=== PATIENT | male | born 1980 | race Caucasian/White ===

== ENCOUNTER 2016-08-17 06:11 | Emergency (ER) | payer OTHER ==
[~2016-08-17] VITALS: Ht 170.2 cm; Wt 76.7 kg
[~2016-08-17 06:11] MED LIST: ERYTHROMYC1 APPLICAT LEFT EYE
[2016-08-17] MEDS ORDERED: ERYTHROMYC1 APPLICAT LEFT EYE (08:16)
[2016-08-17 09:15] VITALS: BP 118/87
== END 2016-08-17 09:16 | disposition home or self-care (01) ==
LOC: EME 06:11
DX: H57.8 Other specified disorders of eye and adnexa (principal); F17.200 Nicotine dependence, unspecified, uncomplicated
CPT/HCPCS: 99281; 99284